=== PATIENT | male | born 1980 | race Caucasian/White ===

== ENCOUNTER 2021-10-09 20:11 | Emergency (ER) | payer BC ==
[2021-10-09] MEDS ORDERED: Lidocaine 2% Jelly 5 ML TUBE ONE (20:37)
[2021-10-09] MEDS ORDERED: Morphine 2 MG/ML VIAL ONE (20:38)
[2021-10-09] MEDS ORDERED: Ondansetron PF 4 MG/2 ML Vial ONE (20:38)
[2021-10-09] MEDS ORDERED: Ondansetron ODT 4 MG TAB ONE (20:41)
[2021-10-09] MEDS ORDERED: Ketorolac Tromethamine 30 MG/ML VIAL ONE (21:14)
[2021-10-09] MEDS ORDERED: HYDROcodone/Acetaminophen 10/325 mg Tablet ONE (21:14)
== END 2021-10-09 21:30 ==
LOC: BURERS 20:11
DX: K64.5 Perianal venous thrombosis (principal); K21.9 Gastro-esophageal reflux disease without esophagitis; E78.5 Hyperlipidemia, unspecified; E78.1 Pure hyperglyceridemia
CPT/HCPCS: 96372; 99283; J1885; J2270; J2405; Q0162